=== PATIENT | female | born 1985 | race Caucasian/White ===

== ENCOUNTER → 2018-11-07 | Outpatient (CLI) | payer BC ==
[~2018-11-07] MED LIST: AMOX250S5 PO; BCP PO; CEPH-38 PO; CODE-54 PO; DCS100C PO; DEXAMETHASONE PO; FRS325T PO; HYDR15SO PO; IBP600T1 PO; IBUP-1773 PO; OXYC-12 PO; PREN1TAB19 PO; PREN1TAB39 PO; TETRACAINE LOLLIPOPS
--- NOTE | 2018-11-07 17:02 | Diagnostic Imaging Report ---
INDICATION: survey. TECHNIQUE: Multiple real-time grayscale images were obtained over the gravid uterus. COMPARISON: None. FINDINGS: Joyce gestation was in variable position. The placenta is posterior with no abruption or previa. Heart rate is 155 beats per minute. Cervix measured 3.7 cm in length and was nondilated. Measurements correlate with an age 20 weeks 2 days reflective of normal interval growth from an initial outside exam. IMPRESSION: Joyce gestation measured 20 weeks 2 days with variable position. Posterior placenta with no abruption or previa and a 3.7 cm nondilated cervix. Biometrical measurements are as follows: Biparietal 4.66 cm, age 20 weeks 1 days. Head circumference 17.66 cm, age 20 weeks 2 days. Abdominal circumference 15.30 cm, age 20 weeks 4 days. Femur length 3.23 cm, age 20 weeks 1 days. Sonographic estimate age: 20 weeks 2 days. Sonographic estimated date of delivery: 03/25/2019. Estimated Weight: 344 gm (+/- 50 gm). LMP percentile: 53%. heart rate: 155 beats per minute. number: 1 of 1. Dictated by: Dictated on workstation # [id number]
== END ==
LOC: RAD 16:05
PROVIDERS: ATTEND Obstetrics & Gynecology
DX: Z36.89 Encounter for other specified antenatal screening (principal); Z3A.20 20 weeks gestation of pregnancy
CPT/HCPCS: 76805

== ENCOUNTER 2019-03-09 05:57 | Inpatient (IN) | payer BC ==
[2019-03-09] VITALS (32 sets, daily range): BP systolic 83–134; BP diastolic 37–87
[~2019-03-09] VITALS: Ht 162.6 cm; Wt 80.8 kg
[~2019-03-09 05:57] MED LIST changes: +CALC500T7 PO; +PREN1TAB79 PO
--- NOTE | 2019-03-09 07:05 | NUR ---
CRYSTAL AUGUSTINE presented to unit via from home, accompanied by , with c/o INDUCTION. CRYSTAL AUGUSTINE weighed, gowned, voided, and to bed. EFHM and TOCO applied, VS taken. CRYSTAL AUGUSTINE oriented to bed controls, call light, TV, heat, and A/C controls.
[2019-03-09] MEDS ORDERED: D5 LR IV SOLUTION 1,000 ML IV ONE (07:23)
--- OUTSIDE RECORDS SUMMARY | 2019-03-09 07:28 | XMS REPORT | Continuity of Care Document ---
Author Organization Unknown Address Unknown Allergies Active Description Code Type Severity Reaction Onset Reported/Identified Relationship to Patient Clinical Status Yes NO KNOWN DRUG ALLERGIES UNKNOWN NO KNOWN DRUG ALLERG Yes No Known Drug Allergies [id number] Drug Allergy Unknown N/A 01/20/2016 Medications There is no data. Problems Date Dx Coded Attending Type Code Diagnosis Diagnosed By 08/11/2013 ELAN BAIRD DO Ot 625.9 FEM GENITAL SYMPTOMS NOS 08/11/2013 ELAN BAIRD DO Ot 648.93 OTH CURR COND-ANTEPARTUM 08/11/2013 ELAN BAIRD DO Ot V15.88 HISTORY OF FALL 09/12/2013 HUNTER SMALLWOOD DO Ot 599.0 URIN TRACT INFECTION NOS 09/12/2013 HUNTER SMALLWOOD DO Ot 646.63 INFECTION-ANTEPARTUM 09/28/2013 ELAN BAIRD DO Ot 648.91 OTH CURR COND-DELIVERED 09/28/2013 ELAN BAIRD DO Ot 664.01 DEL W 1 DEG LACERAT-DEL 09/28/2013 ELAN BAIRD DO Ot V02.51 GROUP B STREPT CARRIER/SUSPECTED CARRIER 09/28/2013 ELAN BAIRD DO Ot V27.0 DELIVER-SINGLE LIVEBORN 01/20/2016 HUNTER TORO MD Ot J35.01 CHRONIC TONSILLITIS 01/20/2016 HUNTER TORO MD Ot Z01.818 ENCOUNTER FOR OTHER PREPROCEDURAL EXAMIN 01/23/2016 HUNTER TORO MD Ot J35.01 CHRONIC TONSILLITIS 11/07/2018 ELAN BAIRD DO Ot Z36.89 ENCOUNTER FOR OTHER SPECIFIED 11/07/2018 ELAN BAIRD DO Ot Z3A.20 20 WEEKS GESTATION OF 12/02/2018 ELAN BAIRD DO Ot Z36.89 ENCOUNTER FOR OTHER SPECIFIED 12/02/2018 ELAN BAIRD DO Ot Z3A.20 20 WEEKS GESTATION OF 12/07/2018 ELAN BAIRD DO Ot Z36.89 ENCOUNTER FOR OTHER SPECIFIED 12/07/2018 ELAN BAIRD DO Ot Z3A.20 20 WEEKS GESTATION OF Procedures Code Description Performed By Performed On 75.69 REPAIR OB LACERATION NEC 09/26/2013 Results Test Result Range Thyroid Stimulating Hormone - 08/26/16 07:27 TSH 1.57 mIU/mL 0.32-5.00 Beta HCG - 07/26/18 12:39 Beta HCG 375 mIU/mL 5-25 3 Hour Glucose Tolerance - 01/06/19 06:27 Glucose 1 Hour 127 Glucose 2 Hour 85 Glucose 3 Hour 62 Glucose Fasting 78 mg/dL 70-110 Complete blood count (CBC) with automated white blood cell (WBC) differential - 02/23/19 11:35 Blood leukocytes automated count (number/volume) 16.0 10*3/uL 4.3-11.0 Blood erythrocytes automated count (number/volume) 4.05 10*6/uL 4.35-5.85 Venous blood hemoglobin measurement (mass/volume) 12.9 g/dL 11.5-16.0 Blood hematocrit (volume fraction) 37 % 35-52 Automated erythrocyte mean corpuscular volume 91 [foz_us] 80-99 Automated erythrocyte mean corpuscular hemoglobin (mass per erythrocyte) 32 pg 25-34 Automated erythrocyte mean corpuscular hemoglobin concentration measurement (mass/volume) 35 g/dL 32-36 Automated erythrocyte distribution width ratio 12.3 % 10.0- 14.5 Automated blood platelet count (count/volume) 140 10*3/uL 130-400 Automated blood platelet mean volume measurement 9.6 [foz_us] 7.4-10.4 Automated blood neutrophils/100 leukocytes 86 % 42-75 Automated blood lymphocytes/100 leukocytes 8 % 12-44 Blood monocytes/100 leukocytes 6 % 0-12 Automated blood eosinophils/100 leukocytes 0 % 0-10 Automated blood basophils/100 leukocytes 0 % 0-10 Blood neutrophils automated count (number/volume) 13.7 10*3 1.8-7.8 Blood lymphocytes automated count (number/volume) 1.2 10*3 1.0-4.0 Blood monocytes automated count (number/volume) 1.0 10*3 0.0- 1.0 Automated eosinophil count 0.1 10*3/uL 0.0-0.3 Automated blood basophil count (count/volume) 0.0 10*3/uL 0.0-0.1 Comprehensive metabolic panel - 02/23/19 11:35 Serum or plasma sodium measurement (moles/volume) 137 mmol/L 135-145 Serum or plasma potassium measurement (moles/volume) 3.5 mmol/L 3.6-5.0 Serum or plasma chloride measurement (moles/volume) 106 mmol/L 98-107 Carbon dioxide 21 mmol/L 21-32 Serum or plasma anion gap determination (moles/volume) 10 mmol/L 5-14 Serum or plasma urea nitrogen measurement (mass/volume) 7 mg/dL 7-18 Serum or plasma creatinine measurement (mass/volume) 0.55 mg/dL 0.60-1.30 Serum or plasma urea nitrogen/creatinine mass ratio 13 NRG Serum or plasma creatinine measurement with calculation of estimated glomerular filtration rate > NRG Serum or plasma glucose measurement (mass/volume) 71 mg/dL 70-105 Serum or plasma calcium measurement (mass/volume) 9.1 mg/dL 8.5-10.1 Serum or plasma total bilirubin measurement (mass/volume) 0.3 mg/dL 0.1-1.0 Serum or plasma alkaline phosphatase measurement (enzymatic activity/volume) 108 U/L 40-136 Serum or plasma aspartate aminotransferase measurement (enzymatic activity/volume) 17 U/L 5-34 Serum or plasma alanine aminotransferase measurement (enzymatic activity/volume) 14 U/L 0-55 Serum or plasma protein measurement (mass/volume) 6.5 g/dL 6.4-8.2 Serum or plasma albumin measurement (mass/volume) 3.4 g/dL 3.2-4.5 CALCIUM CORRECTED 9.6 mg/dL 8.5-10.1 Manual absolute plasma cell count - 02/23/19 11:35 Blood monocytes/100 leukocytes 1 % NRG Manual blood segmented neutrophils/100 leukocytes 83 % NRG Blood band neutrophils/100 leukocytes 8 % NRG Manual blood lymphocytes/100 leukocytes 8 % NRG Manual eosinophils/100 leukocytes in nose 0 % NRG Manual blood basophils/100 leukocytes 0 % NRG Blood erythrocyte morphology finding identification NORMAL NRG Complete urinalysis with reflex to culture - 02/23/19 11:35 Urine color determination YELLOW NRG Urine clarity determination SLIGHTLY CLOUDY NRG Urine pH measurement by test strip 8 5-9 Specific gravity of urine by test strip 1.015 1.016-1.022 Urine protein assay by test strip, semi-quantitative NEGATIVE NEGATIVE Urine glucose detection by automated test strip NEGATIVE NEGATIVE Erythrocytes detection in urine sediment by light microscopy NEGATIVE NEGATIVE Urine ketones detection by automated test strip 3+ NEGATIVE Urine nitrite detection by test strip NEGATIVE NEGATIVE Urine total bilirubin detection by test strip NEGATIVE NEGATIVE Urine urobilinogen measurement by automated test strip (mass/volume) 1 mg/dL NORMAL Urine leukocyte esterase detection by dipstick NEGATIVE NEGATIVE Automated urine sediment erythrocyte count by microscopy (number/high power field) NONE NRG Automated urine sediment leukocyte count by microscopy (number/high power field) RARE NRG Bacteria detection in urine sediment by light microscopy NEGATIVE NRG Squamous epithelial cells detection in urine sediment by light microscopy RARE NRG Crystals detection in urine sediment by light microscopy PRESENT NRG Casts detection in urine sediment by light microscopy NONE NRG Mucus detection in urine sediment by light microscopy NEGATIVE NRG Complete urinalysis with reflex to culture CULTURE PENDING NRG Amorphous sediment detection in urine sediment by light microscopy LARGE ITZ PHOSPHATE NRG Bacterial urine culture - 02/23/19 11:35 Bacterial urine culture NG NRG Encounters ACCT No. Visit Date/Time Discharge Status Pt. Type Provider Facility Loc./Unit Complaint [id number] 01/06/2019 06:21:00 01/06/2019 23:59:00 DIS Outpatient ELAN BAIRD [id number] 07/26/2018 12:36:00 07/26/2018 23:59:00 DIS Outpatient Joyce Monroe [id number] 08/26/2016 07:23:00 08/26/2016 23:59:00 DIS Outpatient MichaelAgathaa [id number] 02/23/2019 10:28:00 02/23/2019 20:05:00 DIS Outpatient ELAN BAIRD DO [facility] WSo CONTRACTIONS [id number] 11/07/2018 16:05:00 11/07/2018 23:59:59 CLS Outpatient ELAN BAIRD DO [facility] RAD [id number] 01/23/2016 05:50:00 01/23/2016 10:50:00 DIS Outpatient MUNA KAN, HUNTER Arango [facility] SDC CHRONIC TONSILITIS [id number] 01/20/2016 05:35:00 01/20/2016 11:45:00 DIS Outpatient HUNTER TORO MD [facility] PREOP CHRONIC TONSILITIS [id number] 09/26/2013 08:06:00 09/28/2013 10:55:00 DIS Inpatient ELAN BAIRD DO [facility] WS INDUCTION [id number] 09/12/2013 14:51:00 09/12/2013 16:37:00 DIS Outpatient HUNTER SMALLWOOD DO [facility] WSo R/O LABOR [id number] 08/11/2013 11:40:00 08/11/2013 13:10:00 DIS Outpatient ELAN BAIRD DO [facility] PELVIC PAIN
[2019-03-09] MEDS ORDERED: SUFENTA 0.6MCG/ML BUPIVA 0.125 100 ML ONE (08:14)
[2019-03-09] MEDS ORDERED: MINERAL OIL CONCENTRATE 99.9% 15 ML UDC TOP PRN (08:15)
[2019-03-09 08:26] LABS: BASOPHILS % (AUTO) 0 % (0-10); EOSINOPHILS # (AUTO) 0.1 10^3/uL (0.0-0.3); EOSINOPHILS % (AUTO) 1 % (0-10); HEMATOCRIT 37 % (35-52); HEMOGLOBIN 12.6 G/DL (11.5-16.0); LYMPHOCYTES # (AUTO) 2.1 X 10^3 (1.0-4.0); LYMPHOCYTES % (AUTO) 19 % (12-44); MEAN CORPUSCULAR HEMOGLOBIN 32 PG (25-34); MEAN CORPUSCULAR HGB CONC 34 G/DL (32-36); MEAN CORPUSCULAR VOLUME 92 FL (80-99); MEAN PLATELET VOLUME 9.7 FL (7.4-10.4); MONOCYTES # (AUTO) 0.9 X 10^3 (0.0-1.0); MONOCYTES % (AUTO) 8 % (0-12); NEUTROPHILS # (AUTO) 7.9 X 10^3 (1.8-7.8); NEUTROPHILS % (AUTO) 72 % (42-75); PLATELET COUNT 153 10^3/uL (130-400); RED CELL DISTRIBUTION WIDTH 12.3 % (10.0-14.5); WHITE BLOOD COUNT 11.1 10^3/uL (4.3-11.0)
[2019-03-09] MEDS ORDERED: BUPIVACAINE 0.25% 30 ML (SENSORCAINE) VIAL ONE (08:52)
[2019-03-09] MEDS ORDERED: fentaNYL INJECTION 100 MCG/2 ML AMP ONE (08:52)
[2019-03-09] MEDS: D5 LR IV SOLUTION 1,000 ML IV SCH ×2 (10:26→14:43)
[2019-03-09] MEDS ORDERED: OXYTOCIN/NORMAL SALINE 500 ML IV SCH ×2 (11:01→15:55)
[2019-03-09] MEDS ORDERED: CATHETER FLUSH 10 ML SYR IV SCH ×2 (14:00→22:00)
[2019-03-09] MEDS ORDERED: LACTATED RINGERS 1,000 ML IV ONE (14:13)
[2019-03-09] MEDS ORDERED: EPIDURAL (SUFENTA 0.6MCG/ML BUPIVA 0.125%) 100 ML BAG EPI SCH (14:15)
[2019-03-09] MEDS ORDERED: CATHETER FLUSH 10 ML SYR IV PRN (14:15)
[2019-03-09] MEDS ORDERED: ONDANSETRON 4 MG/2 ML (SDV) Z0FRAN IV PRN (14:15)
[2019-03-09] MEDS ORDERED: NALOXONE 0.4 MG/ML 1 ML (NARCAN) VIAL IV PRN (14:15)
[2019-03-09] MEDS ORDERED: diphenhydrAMINE 50 MG/ML INJ (BENADRYL) IV PRN (14:15)
[2019-03-09] MEDS ORDERED: LIDOCAINE/EPI 2% 1:200,00 (XYLOCAINE) 10 ML VIAL ONE (15:27)
--- NOTE | 2019-03-09 15:55 | OB Labor & Delivery Record ---
Vag Delivery Note Vag Delivery Note Date of Delivery: 03/09/19 Preoperative Diagnosis: Haylee Jeffery is a 33 /Para 3/2 ,Gestational Age 37 weeks with gestational hypertension. favorable cervix, induction due to this. GBS -, labor this pregancy without delivery. Postoperative Diagnosis: Same Surgeon: ELAN BAIRD Anesthesia: epidural Delivery Type: vaginal Findings: Viable female infant, apgars 9/9, weight pending Lacerations: 1st degree, no sutures Intact placenta with 3 vessel cord. Nuchal cord x 1 delivered through, No body cord or shoulder dystocia Estimated Blood Loss: 250 ml Complications: None Condition: Stable Description of Procedure: The patient is a 33 year old female who presented for induction of labor due to gestational hypertension and favorable cervix.. She was admitted and informed consent was obtained. Her labor course was remarkable for AROM at 5 cm, epidural placement and then augmentation with Pitocin. She progressed to complete dilatation and began to push. She was then set up for delivery. The 's head was delivered atraumatically in the MANDO position. The shoulders and remainder of the infant's body were then delivered without difficulty. Upon delivery, the head was held below the level of the perineum and the mouth and nares were bulb suctioned. The cord was doubly clamped and cut and the infant was handed off to the pediatric staff. An intact placenta with 3-vessel cord delivered via Solomon and there was found to be minimal bleeding.~ Vigorous fundal massage was performed and the fundus was found to be firm. IV oxytocin was given. Examination of the vagina and perineum revealed a 1st degree laceration not repaired. Following the delivery, sponge, instrument and needle counts were correct. Mom and baby were both in stable condition in the labor suite. Vitals - Labs Labs Laboratory Tests 03/09/19 07:45: White Blood Count 11.1H, Red Blood Count 4.00L, Hemoglobin 12.6, Hematocrit 37, Mean Corpuscular Volume 92, Mean Corpuscular Hemoglobin 32, Mean Corpuscular Hemoglobin Concent 34, Red Cell Distribution Width 12.3, Platelet Count 153, Mean Platelet Volume 9.7, Neutrophils (%) (Auto) 72, Lymphocytes (%) (Auto) 19, Monocytes (%) (Auto) 8, Eosinophils (%) (Auto) 1, Basophils (%) (Auto) 0, Neutrophils # (Auto) 7.9H, Lymphocytes # (Auto) 2.1, Monocytes # (Auto) 0.9, Eosinophils # (Auto) 0.1, Basophils # (Auto) 0.0 ELAN BAIRD DO Mar 09, 2019 3:55 pm
[2019-03-09] MEDS ORDERED: BENZOCAINE/MENTHOL (DERMOPLAST) 56 ML CAN TP PRN (16:00)
[2019-03-09] MEDS ORDERED: MEASLES,MUMPS,RUBELLA 1 EA INJ SQ ONE (16:00)
[2019-03-09] MEDS ORDERED: WITCH HAZEL(TUCKS) 40 EA JAR TOP PRN (16:00)
[2019-03-09] MEDS ORDERED: DIBUCAINE (NUPERCAINAL) 1% OINT 30 GM TOP PRN (16:00)
[2019-03-09] MEDS ORDERED: TETANUS,DIPTH,PERTUSS P/F (BOOSTRIX) 0.5 ML VIAL IM ONE (16:00)
[2019-03-09] MEDS: IBUPROFEN 600 MG (MOTRIN) TAB PO SCH (18:09)
--- NOTE | 2019-03-09 20:20 | NUR ---
Pt. helped to bathroom with two nurse assist and wheelchair. Pt. was able to empty her bladder at this time. Fundus is now firm and one under umbilicus. Clean pad and underwear put on. Pt. moved to room at this time via wheelchair and transferred to bed. Infant is awake and mom is attempting to latch her to breast.
[2019-03-09] MEDS: DOCUSATE SODIUM 100 MG (COLACE) CAP PO SCH (21:43)
[2019-03-09] MEDS: ACETAMINOPHEN 500 MG TAB (TYLENOL) PO SCH (21:44)
[2019-03-10] MEDS: IBUPROFEN 600 MG (MOTRIN) TAB PO SCH ×4 (00:27→17:48)
[2019-03-10 01:30] VITALS: BP 108/62
[2019-03-10] MEDS: ACETAMINOPHEN 500 MG TAB (TYLENOL) PO SCH ×2 (05:35→14:00)
[2019-03-10 05:37] LABS: BASOPHILS % (AUTO) 0 % (0-10); EOSINOPHILS # (AUTO) 0.2 10^3/uL (0.0-0.3); EOSINOPHILS % (AUTO) 2 % (0-10); HEMATOCRIT 31 % (35-52); HEMOGLOBIN 10.5 G/DL (11.5-16.0); LYMPHOCYTES # (AUTO) 2.6 X 10^3 (1.0-4.0); LYMPHOCYTES % (AUTO) 22 % (12-44); MEAN CORPUSCULAR HEMOGLOBIN 32 PG (25-34); MEAN CORPUSCULAR HGB CONC 34 G/DL (32-36); MEAN CORPUSCULAR VOLUME 94 FL (80-99); MEAN PLATELET VOLUME 9.8 FL (7.4-10.4); MONOCYTES # (AUTO) 0.8 X 10^3 (0.0-1.0); MONOCYTES % (AUTO) 7 % (0-12); NEUTROPHILS # (AUTO) 8.2 X 10^3 (1.8-7.8); NEUTROPHILS % (AUTO) 69 % (42-75); PLATELET COUNT 123 10^3/uL (130-400); RED CELL DISTRIBUTION WIDTH 12.2 % (10.0-14.5); WHITE BLOOD COUNT 11.8 10^3/uL (4.3-11.0)
[2019-03-10 06:10] VITALS: BP 115/73
--- NOTE | 2019-03-10 06:34 | Postpartum Progress Note ---
Note Note Day # 1 s/p Subjective: Patient is without complaints. Ambulating, voiding. Tolerating a regular diet w ithout nausea or vomiting. Normal lochia. Pain is well controlled with oral pain medications. breast feeding. Objective: Laboratory Tests Test 03/09/19 07:45 03/10/19 05:17 Range/Units White Blood Count 11.1 H 11.8 H 4.3-11.0 10^3/uL Red Blood Count 4.00 L 3.30 L 4.35-5.85 10^6/uL Hemoglobin 12.6 10.5 L 11.5-16.0 G/DL Hematocrit 37 31 L 35-52 % Mean Corpuscular Volume 92 94 80-99 FL Mean Corpuscular Hemoglobin 32 32 25-34 PG Mean Corpuscular Hemoglobin Concent 34 34 32-36 G/DL Red Cell Distribution Width 12.3 12.2 10.0-14.5 % Platelet Count 153 123 L 130-400 10^3/uL Mean Platelet Volume 9.7 9.8 7.4-10.4 FL Neutrophils (%) (Auto) 72 69 42-75 % Lymphocytes (%) (Auto) 19 22 12-44 % Monocytes (%) (Auto) 8 7 0-12 % Eosinophils (%) (Auto) 1 2 0-10 % Basophils (%) (Auto) 0 0 0-10 % Neutrophils # (Auto) 7.9 H 8.2 H 1.8-7.8 X 10^3 Lymphocytes # (Auto) 2.1 2.6 1.0-4.0 X 10^3 Monocytes # (Auto) 0.9 0.8 0.0-1.0 X 10^3 Eosinophils # (Auto) 0.1 0.2 0.0-0.3 10^3/uL Basophils # (Auto) 0.0 0.0 0.0-0.1 10^3/uL 03/09/19 03/10/19 03/10/19 21:48 01:30 06:10 Temp 99.0 98.6 98.2 Pulse 79 79 85 Resp 16 18 18 B/P (MAP) 113/82 (92) 108/62 (77) 115/73 (87) Pulse Ox 99 100 99 O2 Delivery Room Air Room Air Room Air 03/10/19 00:00 Intake Total 1150 ml Balance 1150 ml Physical Exam: General - Alert and oriented, no apparent distress Abdomen - Soft, appropriately tender to palpation, non-distended, fundus firm at umbilicus Extremities - no edema, negative Christopher's bilaterally [] Assessment: 1. post- day # 1, status post spontaneous vaginal delivery. Recovering well, hemodynamically stable 2. gestational hypertension without significant proteinuria, stable Plan: Routine care. Encourage breast feeding. Encourage ambulation. Ferrous sulfate supplementation. Plan for discharge Vitals - Labs Vital Signs - I&O Vital Signs Date Time Temp Pulse Resp B/P (MAP) Pulse Ox O2 Delivery O2 Flow Rate FiO2 03/10/19 06:10 98.2 85 18 115/73 (87) 99 Room Air 03/10/19 01:30 98.6 79 18 108/62 (77) 100 Room Air 03/09/19 21:48 99.0 79 16 113/82 (92) 99 Room Air 03/09/19 17:55 104 18 128/73 (91) Room Air 03/09/19 17:40 100 18 134/63 (86) Room Air 03/09/19 17:25 88 18 116/62 (80) Room Air 03/09/19 17:10 89 18 117/65 (82) Room Air 03/09/19 16:55 85 18 116/56 (76) Room Air 03/09/19 16:40 78 18 115/73 (87) Room Air 03/09/19 16:25 78 18 118/68 (85) Room Air 03/09/19 15:15 77 124/75 (91) 100 Room Air 03/09/19 15:00 77 124/75 (91) 100 Room Air 03/09/19 14:45 77 124/75 (91) 100 Room Air 03/09/19 14:30 77 113/60 (77) 100 Room Air 03/09/19 14:15 76 107/60 (76) 98 Room Air 03/09/19 14:00 79 113/67 (82) 99 Room Air 03/09/19 13:45 97.1 78 16 110/55 (73) 100 Room Air 03/09/19 13:30 79 16 118/65 (82) 100 Room Air 03/09/19 13:15 70 109/63 (78) 100 Room Air 03/09/19 13:00 74 109/67 (81) 100 Room Air 03/09/19 12:45 79 110/68 (82) 100 Room Air 03/09/19 12:30 80 16 109/60 (76) 100 Room Air 03/09/19 12:00 84 105/67 (80) 100 Room Air 03/09/19 11:45 96.0 88 115/62 (79) 100 Room Air 03/09/19 11:30 107/57 (74) 03/09/19 11:15 75 110/56 (74) 100 Room Air 03/09/19 11:00 81 99/57 (71) 100 Room Air 03/09/19 10:45 80 93/57 (69) 100 Room Air 03/09/19 10:30 96.3 72 16 101/58 (72) 100 Room Air 03/09/19 10:15 88 16 88/52 (64) 100 Room Air 03/09/19 10:00 71 92/52 (65) 100 Room Air 03/09/19 09:30 51 16 83/37 (52) 51 Room Air 03/09/19 09:00 84 129/72 (91) 92 Room Air 03/09/19 07:30 97.4 85 16 129/87 (101) Room Air I & O 03/10/19 07:00 Intake Total 2150 ml Balance 2150 ml Labs Laboratory Tests 03/09/19 07:45: White Blood Count 11.1H, Red Blood Count 4.00L, Hemoglobin 12.6, Hematocrit 37, Mean Corpuscular Volume 92, Mean Corpuscular Hemoglobin 32, Mean Corpuscular Hemoglobin Concent 34, Red Cell Distribution Width 12.3, Platelet Count 153, Mean Platelet Volume 9.7, Neutrophils (%) (Auto) 72, Lymphocytes (%) (Auto) 19, Monocytes (%) (Auto) 8, Eosinophils (%) (Auto) 1, Basophils (%) (Auto) 0, Neutrophils # (Auto) 7.9H, Lymphocytes # (Auto) 2.1, Monocytes # (Auto) 0.9, Eosinophils # (Auto) 0.1, Basophils # (Auto) 0.0 03/10/19 05:17: White Blood Count 11.8H, Red Blood Count 3.30L, Hemoglobin 10.5L, Hematocrit 31L , Mean Corpuscular Volume 94, Mean Corpuscular Hemoglobin 32, Mean Corpuscular Hemoglobin Concent 34, Red Cell Distribution Width 12.2, Platelet Count 123L, Mean Platelet Volume 9.8, Neutrophils (%) (Auto) 69, Lymphocytes (%) (Auto) 22, Monocytes (%) (Auto) 7, Eosinophils (%) (Auto) 2, Basophils (%) (Auto) 0, Neutrophils # (Auto) 8.2H, Lymphocytes # (Auto) 2.6, Monocytes # (Auto) 0.8, Eosinophils # (Auto) 0.2, Basophils # (Auto) 0.0 ELAN BAIRD DO Mar 10, 2019 6:34 am
[2019-03-10] MEDS ORDERED: PRENATAL VITAMIN 1 EA TAB PO SCH (07:00)
--- NOTE | 2019-03-10 07:00 | NUR ---
REPORT FROM PRADIP EBNNETT.
[2019-03-10] MEDS ORDERED: FERROUS SULF 325 MG (IRON) TAB PO SCH (08:00)
[2019-03-10 08:35] VITALS: BP 122/63
--- NOTE | 2019-03-10 08:35 | NUR ---
INITIAL ASSESSMENT COMPLETED, VSS, NO C/O NOTED, SEE INTERVENTIONS FOR DETAILED ASSESSMENTS, NO DISTRESS NOTED, WILL MONITOR CLOSELY. PLAN OF CARE UPDATED NO QUESTIONS NOTED.
--- NOTE | 2019-03-10 08:40 | NUR ---
IV DC'D, PT UP TO SHOWER.
[2019-03-10] MEDS: DOCUSATE SODIUM 100 MG (COLACE) CAP PO SCH (08:46)
--- NOTE | 2019-03-10 08:58 | NUR ---
DR BAIRD CALLED FOR UPDATE, NO NEW ORDERS RECEIVED.
[2019-03-10 12:00] VITALS: BP 124/79
--- NOTE | 2019-03-10 12:35 | NUR ---
SCHEDULED MOTRIN GIVEN, STORK MEAL SERVED.
[2019-03-10] MEDS ORDERED: ACET-77 PO (12:57)
[2019-03-10] MEDS ORDERED: IBUP-844 PO (12:57)
--- NOTE | 2019-03-10 12:59 | Discharge Inst-Women's Service ---
Discharge Inst-Women's Serv Depart Medication/Instructions New, Converted or Re-Newed RX: Transmitted to Pharmacy Final Diagnosis gestational hypertension induction vaginal delivery epidural Consults/Follow Up Additional Follow Up: Yes (2 weeks for bp check and 6 week pp exam) Activity Activity: Activity as Tolerated Driving Instructions: You May Drive NO SMOKING: NO SMOKING Nothing Inside Vagina: No Douching, No Lindsay, No Tampons Diet Discharge Diet: No Restrictions Symptoms to Report to : Swelling Increased, Bleeding Excessive, Pain Increased, Constipation(Persistant), Vaginal Bleeding Increase, Cramps in Feet or Legs, Vaginal Discharge Foul For Any Problems or Questions: Contact Your Physician ELAN BAIRD DO Mar 10, 2019 12:59
--- NOTE | 2019-03-10 13:25 | NUR ---
DR BAIRD HERE, NEW ORDERS RECEIVED.
--- NOTE | 2019-03-10 14:40 | Anesthesia-Regional Post-Op ---
Regional Patient Condition Mental Status: Alert, Oriented x3 Circulation: Same as Pre-Op Headache: Absent Sensation: Full Recovery Motor Block: Absent Post Op Complications Complications None Follow Up Care/Instructions Patient Instructions None needed. Anesthesia/Patient Condition Patient is doing well, no complaints, stable vital signs, no apparent adverse anesthesia problems. No complications reported per nursing. D/C home per [facility] Criteria: Yes EVER SANDERS CRNA Mar 10, 2019 14:40
--- NOTE | 2019-03-10 16:50 | NUR ---
REPORT RECEIVED FROM ESSIE BENNETT.
--- NOTE | 2019-03-10 17:45 | NUR ---
DISCHARGE INSTRUCTIONS REVIEWED WITH COPY TO PT. STATES UNDERSTANDING OF ALL INSTRUCTIONS AND NEED TO F/U SCHEDULED AND NEEDED.
[2019-03-10 17:55] VITALS: BP 124/79
--- NOTE | 2019-03-10 17:55 | NUR ---
DISMISSED AMB FROM [facility] WITH IN STABLE CONDITION TO FAMILY CAR ACC BY SPOUSE, GRANDPARENTS,AND CASSI BENNETT.
== END 2019-03-10 17:55 | disposition home or self-care (01) | DRG 807 ==
LOC: LDRP 07:05
PROVIDERS: ADMIT Obstetrics & Gynecology; ATTEND Obstetrics & Gynecology
PROC: 10E0XZZ Delivery of Products of Conception, External Approach (ICD-10-PCS; principal; 2019-03-09)
PROC: 3E033VJ Introduction of Other Hormone into Peripheral Vein, Percutaneous Approach (ICD-10-PCS; 2019-03-09)
DX: O13.4 Gestational [pregnancy-induced] hypertension without significant proteinuria, complicating childbirth (principal); O69.81X0 Labor and delivery complicated by cord around neck, without compression, not applicable or unspecified; O70.0 First degree perineal laceration during delivery; Z3A.37 37 weeks gestation of pregnancy; Z37.0 Single live birth
CPT/HCPCS: 36415; 85025; 86850; 86900; 86901